=== PATIENT | male | born 1945 | race Caucasian/White ===

== ENCOUNTER 2016-09-02 13:13 | Inpatient (IN) | payer OTHER ==
[~2016-09-02] VITALS: Ht 174 cm; Wt 70.5 kg
[2016-09-02] MEDS ORDERED: SOD CHLORIDE 0.9% 500 ML IV STA (13:40)
[2016-09-02 14:04] LABS: ADD SCAN DIFF NO
[2016-09-02 14:14] LABS: BASOPHIL # 0.1 10^3/ul (0.0-0.1); BASOPHILS % 0.7 % (0.0-2.0); EOSINOPHILS # 0.1 10^3/ul (0.0-0.5); EOSINOPHILS % 1.4 % (0.0-7.0); HEMATOCRIT 43.4 % (42.0-52.0); HEMOGLOBIN 15.6 g/dl (14.0-18.0); LYMPHOCYTES # 1.5 10^3/ul (0.8-2.9); LYMPHOCYTES % 22.2 % (15.0-51.0); MEAN CORPUSCULAR HEMOGLOBIN 32.4 pg (29.0-33.0); MEAN CORPUSCULAR HGB CONC 35.9 g/dl (32.0-37.0); MEAN CORPUSCULAR VOLUME 90.2 fl (82.0-101.0); MEAN PLATELET VOLUME 11.4 fl (7.4-10.4); MONOCYTE # 0.7 10^3/ul (0.3-0.9); MONOCYTES % 9.8 % (0.0-11.0); NEUTROPHIL # 4.5 10^3/ul (1.6-7.5); NEUTROPHILS % 65.6 % (39.0-77.0); PLATELET COUNT 158 10^3/UL (140-415); RED BLOOD COUNT 4.81 10^6/ul (4.70-6.10); RED CELL DISTRIBUTION WIDTH 13.2 % (11.5-14.5); WHITE BLOOD COUNT 6.9 10^3/ul (4.8-10.8)
[2016-09-02 14:27] LABS: ANION GAP 12 (8-16); BLOOD UREA NITROGEN 20 mg/dl (7-20); CARBON DIOXIDE 27 mmol/L (21-31); CHLORIDE 102 mmol/L (97-110); CREATININE 1.12 mg/dl (0.61-1.24); GLUCOSE 183 mg/dl (70-220); POTASSIUM 4.1 mmol/L (3.5-5.1); SODIUM 137 mmol/L (135-144)
[2016-09-02 14:41] LABS: TROPONIN-I < 0.012 ng/ml (0.00-0.12)
--- NOTE | 2016-09-02 15:15 | ERA ---
ER Documentation Chief Complaint Date/Time DATE: 09/02/16 TIME: 15:11 Chief Complaint bib ra for eval of confusion episode. pt a&ox4 at this time. HPI This 70-year-old male comes emergency room for increasing memory loss since this morning approximately 6 or 7 hours ago. Few days ago he had memory loss as well in the found out that he had a stroke on MRI. 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 He has no increased weakness in any part of his body currently. He does have a mild occipital headache. No visual disturbances. No chest pain shortness of breath. His accompanies him and provides history that fills in some of the gaps in his memory and states that he is improving a little bit now but earlier had trouble remembering recent events. These are the same symptoms he had recently when he was taken to the hospital and found to have a acute stroke. ROS All systems reviewed and are negative except as per history of present illness. Medications Home Meds Reported Medications Rivaroxaban* (Xarelto*) 20 Mg Tablet, 20 MG PO WITH DINNER, TAB 09/02/16 Aspirin* (Aspirin* EC) 81 Mg Tablet.dr, 81 MG PO DAILY, TAB 09/02/16 Metformin* (Glucophage*) 500 Mg Tab, 500 MG PO WITH BREAKFAST Y for PRN, #30 TAB 09/02/16 Amiodarone Hcl* (Amiodarone Hcl*) 200 Mg Tablet, 200 MG PO DAILY, #30 TAB 09/02/16 Digoxin* (Digitek*) 125 Mcg Tablet, 0.125 MG PO DAILY, TAB 09/02/16 Allergies Allergies: Coded Allergies: Penicillins (Unverified Allergy, Unknown, 09/02/16) PMhx/Soc Medical and Surgical Hx: pt denies Surgical Hx History of Surgery: No Hx Neurological Disorder: Yes (stroke x 3) Hx Respiratory Disorders: No Hx Cardiac Disorders: Yes (atrial fibrillation) Hx Psychiatric Problems: No Hx Miscellaneous Medical Probl: Yes (diabetes, high cholesterol) Hx Alcohol Use: No Hx Substance Use: No Hx Tobacco Use: No Smoking Status: Never smoker Physical Exam Vitals Vital Signs Date Time Temp Pulse Resp B/P Pulse Ox O2 Delivery O2 Flow Rate FiO2 09/02/16 18:40 98.1 68 14 129/73 99 Room Air 09/02/16 16:24 62 12 127/75 99 Room Air 09/02/16 13:25 98.4 81 19 167/71 99 Physical Exam Const: [] No distress Head: Atraumatic Eyes: Normal Conjunctiva ENT: Normal External Ears, Nose and Mouth. Neck: Full range of motion..~ No meningismus. Resp: Clear to auscultation bilaterally Cardio: Irregularly irregular, no murmurs Abd: Soft, non tender, non distended. Normal bowel sounds Skin: No petechiae or rashes Back: No midline or flank tenderness Ext: No cyanosis, or edema, distal pulses intact all 4 extremities Neur: Awake and alert and oriented 3, no focal deficits, short-term memory is currently intact, cranial nerves II through XII intact, no cerebellar deficits on right side. Patient's left arm has 3 out of 5 strength and some muscle contracture which he says is chronic, NIH stroke scale equals 0 at this time. Result Diagram: 09/02/16 1355 09/02/16 1355 Results 24 hrs Laboratory Tests Test 09/02/16 13:55 09/02/16 14:27 09/02/16 18:08 White Blood Count 6.910^3/ul Red Blood Count 4.8110^6/ul Hemoglobin 15.6g/dl Hematocrit 43.4% Mean Corpuscular Volume 90.2fl Mean Corpuscular Hemoglobin 32.4pg Mean Corpuscular Hemoglobin Concent 35.9g/dl Red Cell Distribution Width 13.2% Platelet Count 82385^3/UL Mean Platelet Volume 11.4fl Neutrophils % 65.6% Lymphocytes % 22.2% Monocytes % 9.8% Eosinophils % 1.4% Basophils % 0.7% Nucleated Red Blood Cells % 0.0/100WBC Neutrophils # 4.510^3/ul Lymphocytes # 1.510^3/ul Monocytes # 0.710^3/ul Eosinophils # 0.110^3/ul Basophils # 0.110^3/ul Nucleated Red Blood Cells # 0.010^3/ul Sodium Level 137mmol/L Potassium Level 4.1mmol/L Chloride Level 102mmol/L Carbon Dioxide Level 27mmol/L Anion Gap 12 Blood Urea Nitrogen 20mg/dl Creatinine 1.12mg/dl Glucose Level 183mg/dl Calcium Level 9.0mg/dl Troponin I < 0.012ng/ml Bedside Glucose 188mg/dL 181mg/dL Current Medications Medications (Trade) Dose Ordered Sig/Nilam Route PRN Reason Start Time Stop Time Status Last Admin Dose Admin Sodium Chloride (NS) 500 ml @ 500 mls/hr Q1H STAT IV 09/02/16 13:40 09/02/16 14:39 DC 09/02/16 14:34 Ondansetron HCl (Zofran Inj) 4 mg ER BRIDGE PRN IV NAUSEA AND/OR VOMITING 09/02/16 16:30 09/03/16 16:29 Acetaminophen (Tylenol Tab) 650 mg ER BRIDGE PRN PO MILD PAIN/FEVER 09/02/16 16:30 09/03/16 16:29 Amiodarone HCl (Cordarone) 200 mg DAILY PO 09/03/16 09:00 Aspirin (Halfprin) 81 mg DAILY PO 09/03/16 09:00 Digoxin (Digoxin) 0.125 mg DAILY PO 09/03/16 09:00 Rivaroxaban (Xarelto) 20 mg WITH DINNER PO 09/02/16 18:00 09/02/16 17:31 Diagnostic Test (Pha) (Accu-Chek) 1 ea 02 XX 09/03/16 02:00 Miscellaneous Information (* Miscellaneous Pharmacy Order) HYPOGLYCEMIA PROTOCOL w... ONCE ONCE XX 09/02/16 16:30 09/02/16 16:51 DC 09/02/16 17:11 Insulin Aspart (Novolog Insulin Pen) NOVOLOG *MILD* ALGORITHM WITH MEALS BEDTIME SC 09/02/16 18:00 Miscellaneous Information (* Miscellaneous Pharmacy Order) Discontinue all previ... ONCE ONCE XX 09/02/16 16:30 09/02/16 16:51 DC 09/02/16 17:11 Miscellaneous Information 1 ea NOTE XX 09/02/16 17:00 Glucose (Glutose) 15 gm Q15M PRN PO DECREASED GLUCOSE 09/02/16 17:00 Glucose (Glutose) 22.5 gm Q15M PRN PO DECREASED GLUCOSE 09/02/16 17:00 Dextrose (D50w Syringe) 25 ml Q15M PRN IV DECREASED GLUCOSE 09/02/16 17:00 Dextrose (D50w Syringe) 50 ml Q15M PRN IV DECREASED GLUCOSE 09/02/16 17:00 Glucagon (Glucagen) 1 mg Q15M PRN IM DECREASED GLUCOSE 09/02/16 17:00 Glucose (Glutose) 15 gm Q15M PRN BUCCAL DECREASED GLUCOSE 09/02/16 17:00 Procedures/MDM 70-year-old male with symptoms concerning for acute stroke and that he had similar symptoms with his last stroke. Resolving symptoms suggest possible TIA. Initial head CT shows no hemorrhage. Patient is on Xarelto so this was a concern for possible hemorrhage. Patient had no neurologic deficits except for his residual chronic weakness from prior hemorrhagic stroke. EKG shows no signs of ischemia. Spoke with Dr. Busch who will be admitting the patient to telemetry for further monitoring and workup of his stroke EKG interpretation: Atrial fibrillation rate of 63, indeterminate axis, no ST or T-wave changes concerning for acute ischemia. 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
--- NOTE | 2016-09-02 15:27 | RADRPT ---
PROCEDURE: XR Chest. CLINICAL INDICATION: Chest pain, syncope TECHNIQUE: AP view of the chest was performed. COMPARISON: None FINDINGS: Borderline cardiomegaly is present. The lungs are clear. No signs of pleural fluid or pneumothorax a re seen. The osseous structures and soft tissues are unremarkable. IMPRESSION: No evidence for active cardiopulmonary disease. Borderline cardiomegaly. No acute infiltrate or fin dings of fluid overload. RPTAT: QQ .Arabella Neal MD, MD Date Time Electronically viewed and signed by .Arabella Neal MD, on 09/02/2016 15:26 .F/
[2016-09-02] MEDS ORDERED: DIGO125T PO (15:49)
[2016-09-02] MEDS ORDERED: AMIO200T2 PO (15:50)
[2016-09-02] MEDS ORDERED: METF500T4 PO (15:51)
[2016-09-02] MEDS ORDERED: ASPI-664 PO (15:51)
[2016-09-02] MEDS ORDERED: RIVA20TA PO (15:52)
--- NOTE | 2016-09-02 16:10 | RADRPT ---
PROCEDURE: Noncontrast CT Head. CLINICAL INDICATION: Memory loss. Stroke. TECHNIQUE: Noncontrast CT of the head was obtained. The administered radiation dose was CTDI vol = 44.68 mGy, DLP = 720.23 mGy-cm. One or more of the following dose reduction techniques were used: Au tomated exposure control, Adjustment of the mA and/or kV according to patient size, or Use of iterat vashti reconstruction technique. COMPARISON: Noncontrast CT of the head from June 29, 2015. FINDINGS: There is mild generalized cerebral volume loss. There is mild to moderate right hippocampal volume l oss. The left hippocampus is within normal limits. There is mild to moderate periventricular hypoa ttenuation suggesting chronic microvascular ischemic changes. There are mild vascular calcificatio ns within the intracranial carotid arteries. There is a chronic right frontal opercular infarction involving the right insula and right basal kristina glia with cystic encephalomalacia and adjacent subcortical gliosis. Gliosis extends into the right s uperior temporal lobe. There is mild ex vacuo dilatation of the right lateral ventricle. The right c erebral peduncle small in size most compatible with Wallerian degeneration. There is no loss of malave-white differentiation to suggest acute territorial infarction. There is no acute intracranial hemorrhage or extra-axial fluid collection. No midline shift is identified. The orbits are within normal limits. The paranasal sinuses are well aerated. No destructive osseous lesion is identified. IMPRESSION: No significant change. 1. No acute intracranial hemorrhage. 2. Mild generalized cerebral volume loss. 3. Mild to moderate chronic microvascular ischemic changes. 4. 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 5. Mild to moderate right hippocampal volume loss. Further findings as detailed above. RPTAT: PP .Jaison Do MD, Date Time Electronically viewed and signed by .Jaison Do MD, MD on 09/02/2016 16:09 .F/
[2016-09-02] MEDS ORDERED: ACETAMINOPHEN 325 MG TAB PO PRN (16:30)
[2016-09-02] MEDS ORDERED: ONDANSETRON 4 MG INJ IV PRN (16:30)
[2016-09-02] MEDS ORDERED: GLUCOSE GEL 15 GRAM TUBE BUCCAL PRN (17:00)
[2016-09-02] MEDS ORDERED: GLUCOSE GEL 15 GRAM TUBE PO PRN ×2 (17:00)
[2016-09-02] MEDS ORDERED: DEXTROSE 50% 50 ML SYRINGE IV PRN ×2 (17:00)
[2016-09-02] MEDS ORDERED: GLUCAGON 1 MG INJ IM PRN (17:00)
--- NOTE | 2016-09-02 17:13 | RADRPT ---
PROCEDURE: US carotid arteries. CLINICAL INDICATION: Dizziness. Cerebrovascular accident. TECHNIQUE: Multiple sonographic images of the carotid arteries and vertebral arteries were obtaine d utilizing malave scale, duplex, and color-flow imaging. The images were reviewed on a PACS workstati on. COMPARISON: No prior studies are available for comparison. FINDINGS: Evaluation of the right carotid bifurcation region reveals mild atherosclerotic disease. Evaluation of the left carotid bifurcation region reveals mild atherosclerotic disease. There is antegrade flow within the vertebral arteries bilaterally. RIGHT CAROTID MEASUREMENTS: Common Carotid [id number] (cm/sec) Internal Carotid Artery 49 (cm/sec) External Carotid Artery 64 (cm/sec) Vertebral Artery 35 (cm/sec) Internal Carotid/Common Carotid1.0 LEFT CAROTID MEASUREMENTS: Common Carotid [id number] (cm/sec) Internal Carotid Artery 69 (cm/sec) External Carotid Artery 82 (cm/sec) Vertebral Artery 33 (cm/sec) Internal Carotid/Common Carotid1.0 Validated velocity measurements with angiographic measurements. Velocity criteria are extrapolated f rom diameter data as defined by the Society of Radiologists in Ultrasound Consensus Conference. Radi ology 2003; 229;340-346. This study does indirectly reference the measurement of the distal ICA alexandra meter as the denominator for stenosis measurement. IMPRESSION: 1. Less than 50% stenosis bilaterally in the internal carotid arteries. 2. Normal antegrade flow in the vertebral arteries bilaterally. RPTAT: QQ SRU Consensus Conference Criteria for the Diagnosis of Carotid Artery Stenosis* Degree of Stenosis, % ICA PSV, cm/sec Plaque Estimate, % ICA/CCA PSV Ratio Normal <125 None <2.0 <50 <125 <50 <2.0 50 69 125-230 >50 2.0-4.0 >70 but less than near occlusion >230 >50 <4.0 Near occlusion High, low, or undetectable Visible Variable Total occlusion Undetectable Visible, no detectable lumen Not applicable *Cartoid artery stenosis: malave-scale and Doppler US diagnosis. Society of Radiologists in Ultrasound Consensus Conference. Radiology 2003; 229: 340-346 .Juan Chio MD, Date Time Electronically viewed and signed by .Juan Choi MD, on 09/02/2016 17:13 .R/
[2016-09-02] MEDS: INSULIN ASPART [NOVOLOG] 3 ML PEN SC SCH ×2 (18:00→21:00)
[2016-09-02] MEDS ORDERED: RIVAROXABAN 20 MG TABLET PO SCH (18:00)
[2016-09-02 18:40] VITALS: TEMP 98.1
[2016-09-02] MEDS ORDERED: ASPIRIN 81 MG TAB PO ONE (20:30)
--- NOTE | 2016-09-02 20:45 | HP ---
Date/Time of Note Date/Time of Note DATE: 09/02/16 TIME: 16:28 Assessment/Plan VTE Prophylaxis VTE Prophylaxis Intervention: SCD's Assessment/Plan Assessment/Plan 70 yo M with 1. Possible acute on chronic CVA 2. A fib : rate controlled 3. Diabetes type 2 4. Dyslipidemia PLAN: Admit tele / MRI / carotid dopplers / 2D echo PT / OT eval / Neurology consult Screening labs for dyslipidemia, DM, Thyroid disease Empiric ASA / Statin therapy Further evaluation and treatment will be based on clinical course and findings Neurology Consult, Speech and Physical therapy consults. Supportive care Plan of care has been discussed with patient, questions answered and patient has verbalized understanding. Please review chart and notes for further information if needed. PROPHYLAXIS: SCDs / Pepcid HPI/ROS Admit Date/Time Admit Date/Time 09/02/16 Hx of Present Illness 70 yo M poor historian who presents with concerns for memory loss for the last few days, with a history of CVA in the past, admitted for stroke workup. Patient has a residual Left-sided hemiplegia from previous strokes. As far as I know there has been no fever, no chest pain, shortness of breath. Patient does not report abdominal pain, blood in his stool, dysuria or hematuria. He has had both hemorrhagic and ischemic strokes in the past. He also has a history of atrial fibrillation but is currently rate controlled. ROS 12 point review if systems was done and pertinent findings are as noted. PMH/Family/Social Past Medical History * Afib * Prev CVA * Diabetes type 2 * Dyslipidemia Medical History: diabetes, high cholesterol Social History Alcohol Use: none Smoking Status: Never smoker Exam/Review of Systems Vital Signs Vitals VS - Last 72 Hours, by Label Date Time Temp Pulse Resp B/P Pulse Ox O2 Delivery O2 Flow Rate FiO2 09/02/16 16:24 62 12 127/75 99 Room Air 09/02/16 13:25 98.4 81 19 167/71 99 Vital Signs Date Time Temp Pulse Resp B/P Pulse Ox O2 Delivery O2 Flow Rate FiO2 09/02/16 16:24 62 12 127/75 99 Room Air 09/02/16 13:25 98.4 Exam Exam GENERAL: Patient is alert, in no distress HEENT: Oropharynx is clear. There is no carotid bruit, no masses. Patient's pupils are equal, round and reactive to light bilaterally. NECK: Supple. LUNGS: Clear to auscultation bilaterally with good air entry. No Wheezes or crackles. HEART: S1, S2. No murmur, gallops or rubs. Irregularly irregular ABDOMEN: Soft, nontender. Normoactive bowel sounds. There are no stigmata of chronic liver disease. BACK: no costovertebral angle tenderness. GENITOURINARY: Deferred. EXTREMITIES: No edema. There is no cyanosis, clubbing. There are 2+ pulses bilaterally distally. NEUROLOGIC: Left-sided hemiparesis SKIN: Otherwise, unremarkable. Labs Result Diagram: 09/02/16 1355 09/02/16 1355 Procedures Procedures Laboratory Tests Test 09/02/16 13:55 09/02/16 14:27 White Blood Count 6.910^3/ul Red Blood Count 4.8110^6/ul Hemoglobin 15.6g/dl Hematocrit 43.4% Mean Corpuscular Volume 90.2fl Mean Corpuscular Hemoglobin 32.4pg Mean Corpuscular Hemoglobin Concent 35.9g/dl Red Cell Distribution Width 13.2% Platelet Count 87510^3/UL Mean Platelet Volume 11.4fl Neutrophils % 65.6% Lymphocytes % 22.2% Monocytes % 9.8% Eosinophils % 1.4% Basophils % 0.7% Nucleated Red Blood Cells % 0.0/100WBC Neutrophils # 4.510^3/ul Lymphocytes # 1.510^3/ul Monocytes # 0.710^3/ul Eosinophils # 0.110^3/ul Basophils # 0.110^3/ul Nucleated Red Blood Cells # 0.010^3/ul Sodium Level 137mmol/L Potassium Level 4.1mmol/L Chloride Level 102mmol/L Carbon Dioxide Level 27mmol/L Anion Gap 12 Blood Urea Nitrogen 20mg/dl Creatinine 1.12mg/dl Glucose Level 183mg/dl Calcium Level 9.0mg/dl Troponin I < 0.012ng/ml Bedside Glucose 188mg/dL Current Medications Medications (Trade) Dose Ordered Sig/Nilam Route PRN Reason Start Time Stop Time Status Last Admin Dose Admin Sodium Chloride (NS) 500 ml @ 500 mls/hr Q1H STAT IV 09/02/16 13:40 09/02/16 14:39 DC 09/02/16 14:34 500 MLS/HR Ondansetron HCl (Zofran Inj) 4 mg ER BRIDGE PRN IV NAUSEA AND/OR VOMITING 09/02/16 16:30 09/03/16 16:29 Acetaminophen (Tylenol Tab) 650 mg ER BRIDGE PRN PO MILD PAIN/FEVER 09/02/16 16:30 09/03/16 16:29 PROCEDURE: Noncontrast CT Head. CLINICAL INDICATION: Memory loss. Stroke. TECHNIQUE: Noncontrast CT of the head was obtained. The administered radiation dose was CTDI vol = 44.68 mGy, DLP = 720.23 mGy-cm. One or more of the following dose reduction techniques were used: Automated exposure control, Adjustment of the mA and/or kV according to patient size, or Use of iterative reconstruction technique. COMPARISON: Noncontrast CT of the head from June 29, 2015. FINDINGS: There is mild generalized cerebral volume loss. There is mild to moderate right hippocampal volume loss. The left hippocampus is within normal limits. There is mild to moderate periventricular hypoattenuation suggesting chronic microvascular ischemic changes. There are mild vascular calcifications within the intracranial carotid arteries. There is a chronic right frontal opercular infarction involving the right insula and right basal ganglia with cystic encephalomalacia and adjacent subcortical gliosis. Gliosis extends into the right superior temporal lobe. There is mild ex vacuo dilatation of the right lateral ventricle. The right cerebral peduncle small in size most compatible with Wallerian degeneration. There is no loss of malave-white differentiation to suggest acute territorial infarction. There is no acute intracranial hemorrhage or extra-axial fluid collection. No midline shift is identified. The orbits are within normal limits. The paranasal sinuses are well aerated. No destructive osseous lesion is identified. IMPRESSION: No significant change. 1. No acute intracranial hemorrhage. 2. Mild generalized cerebral volume loss. 3. Mild to moderate chronic microvascular ischemic changes. 4. 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 5. Mild to moderate right hippocampal volume loss. Further findings as detailed above. RPTAT: PP .Jaison Do MD, MD Date Time Electronically viewed and signed by .Jaison Do MD, MD on 09/02/2016 16:09 .F/ CC: JOANNEAVELINA PROCEDURE: XR Chest. CLINICAL INDICATION: Chest pain, syncope TECHNIQUE: AP view of the chest was performed. COMPARISON: None FINDINGS: Borderline cardiomegaly is present. The lungs are clear. No signs of pleural fluid or pneumothorax are seen. The osseous structures and soft tissues are unremarkable. IMPRESSION: No evidence for active cardiopulmonary disease. Borderline cardiomegaly. No acute infiltrate or findings of fluid overload. RPTAT: QQ .Arabella Neal MD, MD Date Time Electronically viewed and signed by .Arabella Neal MD, MD on 09/02/2016 15:26 .F/ I reviewed EKG Rate: 63 Rhythm: afib Note: No ST elevation or depressions noted concerning for acute ischemic event. KEVIN MARTINEZ. Sep 02, 2016 16:40
--- NOTE | 2016-09-02 22:58 | RADRPT ---
PROCEDURE: MRI Brain without contrast. CLINICAL INDICATION: Stroke TECHNIQUE: An MRI of the brain was performed on a high resolution hi-definition MRI scanner utiliz ing the following sequences: Sagittal and axial T1 weighted, axial T2 weighted, coronal GRE, axial diffusion weighted with ADC mapping, coronal GRE, and axial FLAIR. COMPARISON: None FINDINGS: The scalp and calvarium are normal. The paranasal sinuses are normal. The bilateral orbits are norm al. The bilateral mastoid air cells and middle ear cavities are clear. No extra-axial fluid collections are present. The ventricles and sulci are age appropriate. Moderat e diffuse volume loss is present. No evidence of intracranial hemorrhage, mass effect or midline [place] ft is present. Hyperintensity on FLAIR and T2-weighted sequences is noted and a wedge shaped configu ration involving the right frontal lobe, right periventricular white matter, right basal ganglia, in sula and the particular compatible with a chronic right middle cerebral artery infarct. Associated volume loss of the right cerebral peduncle and right dima hugo is present compatible with Wallerian degeneration. Associated right greater than left FLAIR and T2 hyperintensity in the subcortical white matter, cent rum semiovale, and periventricular white matter compatible with moderate chronic microvascular ische ni disease. associated hyperintensity is also noted in the right periventricular temporal lobe and the para hippocampal gyrus with associated volume loss. Restricted and restricted diffusion is note d in the right periventricular white matter and the right occipital lobe compatible with evolution o f an acute to subacute infarct. Hypointensity is present on GRE sequences in the right periventricu lar white matter, basal ganglia and insula compatible with previous hemorrhagic right middle cerebra l artery infarct. No significant flow void is noted in the sylvian branches of the right middle cer ebral artery. Normal flow voids are visible in the remaining proximal intracranial arteries and dura l sinuses, indicating patency. IMPRESSION: 1. Acute to subacute right occipital lobe and right periventricular deep white matter non hemorrhag ic infarcts. 2. Chronic , previously hemorrhagic, right middle cerebral artery infarct and associated wallerian degeneration. 3. Right greater than left moderate chronic microvascular ischemic disease as noted above and diffu se volume loss. 4. No significant flow void in the sylvian right middle cerebral artery branches compatible with ch ronic right middle cerebral artery infarct A call report was made to Dr. Anaya at 09/02/2016 10:50:23 PM following the completion of the exami nation by the undersigned. RPTAT: HDC .Jennifer Hawthorne MD, MD Date Time Electronically viewed and signed by .Jennifer Hawthorne MD, MD on 09/02/2016 22:57 .C/
[2016-09-02 23:17] VITALS: BP 137/84; PULSE 60; RESP 18
[2016-09-03] VITALS (10 sets, daily range): BP systolic 132–152; BP diastolic 66–79; PULSE 50–70; RESP 18–19; Ht 174 cm; Wt 70.5 kg
[2016-09-03] MEDS: INSULIN ASPART [NOVOLOG] 3 ML PEN SC SCH ×3 (00:37→11:50)
[2016-09-03] MEDS ORDERED: ACCU-CHEK XX SCH (02:00)
[2016-09-03] MEDS ORDERED: AMIODARONE 200 MG TAB PO SCH (09:00)
[2016-09-03] MEDS ORDERED: ASPIRIN (EC) 81 MG TAB PO SCH (09:00)
[2016-09-03] MEDS ORDERED: DIGOXIN 0.125 MG TAB PO SCH (09:00)
[2016-09-03 09:52] LABS: ADD SCAN DIFF NO
[2016-09-03 09:54] LABS: BASOPHIL # 0.1 10^3/ul (0.0-0.1); BASOPHILS % 0.8 % (0.0-2.0); EOSINOPHILS # 0.1 10^3/ul (0.0-0.5); EOSINOPHILS % 1.7 % (0.0-7.0); HEMATOCRIT 44.4 % (42.0-52.0); LYMPHOCYTES # 1.5 10^3/ul (0.8-2.9); LYMPHOCYTES % 22.3 % (15.0-51.0); MEAN CORPUSCULAR HEMOGLOBIN 32.8 pg (29.0-33.0); MEAN PLATELET VOLUME 11.6 fl (7.4-10.4); MONOCYTE # 0.8 10^3/ul (0.3-0.9); MONOCYTES % 11.6 % (0.0-11.0); NEUTROPHIL # 4.1 10^3/ul (1.6-7.5); NEUTROPHILS % 63.1 % (39.0-77.0); PLATELET COUNT 169 10^3/UL (140-415); RED BLOOD COUNT 4.88 10^6/ul (4.70-6.10); RED CELL DISTRIBUTION WIDTH 13.4 % (11.5-14.5); WHITE BLOOD COUNT 6.6 10^3/ul (4.8-10.8)
[2016-09-03 10:14] LABS: INR 1.74; PROTIME 20.5 Sec (12.2-14.2); PT RATIO 1.6
[2016-09-03 10:15] LABS: PARTIAL THROMBOPLASTIN TIME 38.3 Sec (25.0-35.0)
[2016-09-03 10:54] LABS: ALBUMIN 4.1 g/dl (3.3-4.9); BILIRUBIN,INDIRECT 0.4 mg/dl (0-1.1); BILIRUBIN,TOTAL 0.4 mg/dl (0.2-1.3); CALCIUM 9.1 mg/dl (8.4-10.2); CHOL/HDL RATIO 8.5 RATIO; CREATININE 1.02 mg/dl (0.61-1.24); MAGNESIUM 1.9 mg/dl (1.7-2.5); POTASSIUM 4.3 mmol/L (3.5-5.1); TOTAL PROTEIN 6.2 g/dl (6.1-8.1)
[2016-09-03] MEDS ORDERED: ATORVASTATIN 80 MG TAB PO SCH (11:30)
[2016-09-03 13:05] LABS: THYROID STIMULATING HORMONE 1.43 MIU/L (0.465-4.680)
[2016-09-03] MEDS ORDERED: METF500T4 PO (14:28)
[2016-09-03] MEDS ORDERED: ZOC10 PO (15:18)
--- NOTE | 2016-09-03 15:21 | PDOCDIS ---
Discharge Instructions DIAGNOSIS Discharge Diagnosis Acute recurrent Stroke CONDITION Patient Condition: Stable HOME CARE INSTRUCTIONS: Special Diet: CARB CONTROLLED ACTIVITY: Activity Restrictions: Slowly Increase Activity Rest between Activity REFERRALS Other Referrals Name, Degree : Berenice Perry MD Specialty :Neurology Office Address : [facility] [address], [address] [place] [address] Office Office OTHER ORDERS: Other Orders: You will benefit from neurosurgical review with a cerebrovascular specialist. It is my understanding that these appointment has already been set up, Please follow up at scheduled appointment. Please make sure you follow-up with a neurologist as well outpatient. It is very important Followup with your primary doctor as well within the next 1-2 weeks. If you don't have one please let someone know, we can give you resources that may help you pick one. You may call Dr Jer Monte's office. he's accepting new patients Name, Degree: Jer Monte MD Specialty: Internal Medicine Comments: Office Address: [address] [place] [address] [address] [place] [address] Office Office You may also call your insurance company to assign one to you. Review your medication list with your nurse before leaving and if you need new prescriptions please let your nurse know. I may have made changes to your home medications or given you new prescriptions , please let your primary doctor know as well. Stay compliant with your medications and report any side effects to your PCP or pharmacist. Return to the ER if you have any concerns and cannot reach your doctors or call your insurance company, they usually have a nurse that can help you. KEVIN MARTINEZ Sep 03, 2016 15:21
--- NOTE | 2016-09-03 17:54 | DS ---
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 Patient Condition: Stable Consults Neurosurgical as well as neurology consults were obtained, however patient opted not to see the consultants prior to discharge. . Procedures See hospital course . Hospital Course 71-year-old male who has a past medical history of one hemorrhagic stroke back in February 2014 and 2 ischemic strokes earlier this year with residual significant left-sided hemiparesis. His noticed that he was having abnormal memory loss about 6 days ago, as evidenced by him asking the same questions over and over again, her needing to remind him of significant events which he typically will not have forgotten. She was concerned but she wanted to wait and see how it turned out. She also did not recognize it because it was not classic signs of an acute stroke. However symptoms seemed to improve but not significantly. She decided to bring him to be evaluated yesterday. At this time his evaluation is now consistent with another right occipital stroke that was confirmed on MRI. MRI also showed periventricular deep white matter infarcts, It did show a previously hemorrhagic right middle cerebral artery infarct with associated wallerian degeneration. The patient when he had his prior stroke in March 2016 had undergone an MRA of the brain. This was found to be diffusely abnormal, showin. Right MCA M2 segments occlusion 2. Right proximal anterior cerebral arteries severe focal stenosis 3. Bilateral posterior cerebral atrophy proximal severe stenosis and distal occlusions 4. Incidental/nonacute findings. After reviewing all images; I spoke with patient and his in detail. 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 I explained to the patient that because of his symptomatology and all findings, he will need to be seen by a neurologist, as well as a neurosurgeon. His did endorse to me that they had outpatient appointments set up with both neurology and neurosurgery, however they have not been able to keep this because patient got admitted to the hospital. I did let them know that I had obtained neurology consultation, I was going to obtain neurosurgical consultation as well. The patient and his however had a clear understanding of his disease process, and instead told me they were exploring nonsurgical options to treat his clinical condition. They mentioned something called EPS. I also spoke with the neurosurgeon after speaking with them, and Dr. Reynolds strongly recommended transfer to tertiary [facility] for review by a neurosurgeon who specializes in strokes for possible bypass surgery versus stent placement in his cerebral artery. However when I presented his options with the patient and his , the patient vehemently refused surgery, and his assured me that he was fully aware and cognizant of the possibility of if he did not pursue surgery, as well as recurrent strokes and he was willing to take this risk rather than go through surgery. They politely declined the transfer. During this conversation, they also asked me if the neurologist would add much to the condition or management, I expressed to them that I I did not know exactly what the neurologist would say, and I did strongly recommend that they see a neurologist before discharge however they assured me that they did have an upcoming appointment and they will be sure to keep that appointment. They requested to be discharged right away before the neurologist came by. It is my opinion that the patient and his are well educated and do understand the consequences of this decision, they have assured me they will keep their outpatient neurology as well as neurosurgical follow-ups and as such I will be discharging them now per their request. The patient also has had a bad myopathy reaction to Lipitor, and as such was refusing Lipitor therapy; but I was able to convince him to try low-dose simvastatin. Further measures will be. He is neurologist on neurosurgical recommendations. . Home Meds Active Scripts Simvastatin (Simvastatin) 10 Mg Tablet, 10 MG PO QHS, #30 TAB 1 Refill Prov:CHILO MARTINEZVic Galan. 09/03/16 Metformin* (Glucophage*) 500 Mg Tab, 500 MG PO WITH BREAKFAST, #30 TAB 1 Refill Prov:AMMY MARTINEZCATRACHITA Galan. 09/03/16 Reported Medications Rivaroxaban* (Xarelto*) 20 Mg Tablet, 20 MG PO WITH DINNER, TAB 09/02/16 Aspirin* (Aspirin* EC) 81 Mg Tablet., 81 MG PO DAILY, TAB 09/02/16 Amiodarone Hcl* (Amiodarone Hcl*) 200 Mg Tablet, 200 MG PO DAILY, #30 TAB 09/02/16 Digoxin* (Digitek*) 125 Mcg Tablet, 0.125 MG PO DAILY, TAB 09/02/16 Follow-up Plan See hospital course . Primary Care Provider Not On Staff Doctor Time spent on discharge: > 30 minutes Pending Labs Laboratory Tests Test 09/02/16 18:08 09/03/16 00:35 09/03/16 08:07 09/03/16 09:25 Bedside Glucose 181mg/dL (70-220) 126mg/dL (70-220) 166mg/dL (70-220) White Blood Count 6.610^3/ul (4.8-10.8) Red Blood Count 4.8810^6/ul (4.70-6.10) Hemoglobin 16.0g/dl (14.0-18.0) Hematocrit 44.4% (42.0-52.0) Mean Corpuscular Volume 91.0fl (82.0-101.0) Mean Corpuscular Hemoglobin 32.8pg (29.0-33.0) Mean Corpuscular Hemoglobin Concent 36.0g/dl (32.0-37.0) Red Cell Distribution Width 13.4% (11.5-14.5) Platelet Count 25335^3/UL (140-415) Mean Platelet Volume 11.6fl (7.4-10.4) Neutrophils % 63.1% (39.0-77.0) Lymphocytes % 22.3% (15.0-51.0) Monocytes % 11.6% (0.0-11.0) Eosinophils % 1.7% (0.0-7.0) Basophils % 0.8% (0.0-2.0) Nucleated Red Blood Cells % 0.0/100WBC (0.0-0.0) Neutrophils # 4.110^3/ul (1.6-7.5) Lymphocytes # 1.510^3/ul (0.8-2.9) Monocytes # 0.810^3/ul (0.3-0.9) Eosinophils # 0.110^3/ul (0.0-0.5) Basophils # 0.110^3/ul (0.0-0.1) Nucleated Red Blood Cells # 0.010^3/ul (0.0-0.0) Prothrombin Time 20.5Sec (12.2-14.2) Prothrombin Time Ratio 1.6 INR International Normalized Ratio 1.74 Activated Partial Thromboplast Time 38.3Sec (25.0-35.0) Sodium Level 140mmol/L (135-144) Potassium Level 4.3mmol/L (3.5-5.1) Chloride Level 108mmol/L (97-110) Carbon Dioxide Level 23mmol/L (21-31) Anion Gap 13 (8-16) Blood Urea Nitrogen 19mg/dl (7-20) Creatinine 1.02mg/dl (0.61-1.24) Glucose Level 201mg/dl (70-220) Hemoglobin A1c 7.0% (0-5.9) Calcium Level 9.1mg/dl (8.4-10.2) Phosphorus Level 3.0mg/dl (2.5-4.9) Magnesium Level 1.9mg/dl (1.7-2.5) Total Bilirubin 0.4mg/dl (0.2-1.3) Direct Bilirubin 0.00mg/dl (0.00-0.20) Indirect Bilirubin 0.4mg/dl (0-1.1) Aspartate Amino Transf (AST/SGOT) 29IU/L (15-46) Alanine Aminotransferase (ALT/SGPT) 56IU/L (13-69) Alkaline Phosphatase 94IU/L (42-121) Total Protein 6.2g/dl (6.1-8.1) Albumin 4.1g/dl (3.3-4.9) Triglycerides Level 607mg/dl (0-149) Cholesterol Level 196mg/dl (100-200) LDL Cholesterol, Calculated 52mg/dl HDL Cholesterol 23mg/dl (31-75) Cholesterol/HDL Ratio 8.5RATIO Thyroid Stimulating Hormone (TSH) 1.430MIU/L (0.465-4.680) Digoxin Level < 0.4ng/ml (1.0-2.0) Test 09/03/16 11:32 Bedside Glucose 228mg/dL (70-220) KEVIN MARTINEZ Sep 03, 2016 17:54
--- NOTE | 2016-09-03 20:15 | RADRPT ---
Echocardiogram Report Patient Name: CHINO BARTLETT Gender: Male Date: 1945 Study Date: 03-Sep-2016 Paper Counter: Whit TeixeiraEUGENE Location: [facility] Ref. Physician: KEVIN MARTINEZ Quality: Adequate Procedures: Transthoracic echocardiogram with complete 2D, M-Mode, and doppler examination. Indications: Atrial Fibrillation. Cerebrovascular Accident. 2D/M Mode Doppler Measurement Value Normal Ranges Measurement Value Normal Ranges LVIDd 2D 4.1 3.5 - 5.6 cm AV Peak Epifanio 1.6 m/sec LVIDs 2D 2.7 2.1 - 4.1 cm AV Peak PG 11.0 mmHg FS 2D 32.6 % LVOT Peak Epifanio 1.2 m/sec LVPWd 2D 1.4 0.6 - 1.1 cm LVOT Peak PG 5.0 mmHg IVSd 2D 1.6 0.6 - 1.1 cm MV E Peak Epifanio 1.0 m/sec IVS/LVPW 2D 1.1 MV Decel Time 155 msec AoR Diam 2D 3.0 2.0 - 3.7 cm TR Peak Epifanio 2.0 m/sec LA/Ao 2D 1 0 - 1 TR Peak PG 15.0 mmHg EDV 2D 66.4 cm3 RVSP 23.0 mmHg ESV 2D 20.3 cm3 LA Dimen 2D 3.7 2.3 - 4.0 cm Findings Left Ventricle: Lower limits of normal systolic function. Normal left ventricular cavity size. Moderate concentric left ventricular hypertrophy. Ejection fraction is visually estimated at 5055 %. Tissue Doppler/Mitral Doppler indices are consistent with restrictive physiology with markedly elevated left atrial pressure (Stage IIIIV diastolic dysfunction). Right Ventricle: Normal right ventricular size. Normal right ventricular systolic function. Left Atrium: The left atrium is normal in size. Right Atrium: The right atrium is normal in size. Mitral Valve: Mitral valve leaflets appear mildly thickened. Mild mitral annular calcification. Trace mitral regurgitation. Aortic Valve: No significant aortic stenosis or insufficiency. Aortic cusps appear mildly calcified. Tricuspid Valve: Normal appearance of the tricuspid valve. Estimated peak PA systolic pressure 23 mmHg. There is trace tricuspid regurgitation. Pulmonic Valve: Pulmonic valve not well visualized. There is trace pulmonic regurgitation. Pericardium: Normal pericardium with no significant pericardial effusion. Aorta: Normal aortic root. IVC: Dilated IVC with respiratory collapse consistent with elevated right atrial pressure. Conclusions 1.Lower limits of normal systolic function. Normal left ventricular cavity size. Moderate concentric left ventricular hypertrophy. Ejection fraction is visually estimated at 50-55 %. Tissue Doppler/Mitral Doppler indices are consistent with restrictive physiology with markedly elevated left atrial pressure (Stage III-IV diastolic dysfunction). 2.Mitral valve leaflets appear mildly thickened. Mild mitral annular calcification. Trace mitral regurgitation. 3.Normal appearance of the tricuspid valve. Estimated peak PA systolic pressure 23 mmHg. There is trace tricuspid regurgitation. 4.Pulmonic valve not well visualized. There is trace pulmonic regurgitation. Electronically Signed By: Kenton Swanson 03-Sep-2016 20:14:10 -0700 Patient Name: CHINO BARTLETT Study Date: 03-Sep-[id number]
== END 2016-09-03 16:42 | disposition home health service (06) | DRG 65 ==
LOC: E/R 13:13 → MS4 16:07 → TEL 23:30
PROVIDERS: ADMIT Internal Medicine; ATTEND Internal Medicine
DX: I63.521 Cerebral infarction due to unspecified occlusion or stenosis of right anterior cerebral artery (principal); G81.91 Hemiplegia, unspecified affecting right dominant side; I69.354 Hemiplegia and hemiparesis following cerebral infarction affecting left non-dominant side; I48.2 Chronic atrial fibrillation; I63.533 Cerebral infarction due to unspecified occlusion or stenosis of bilateral posterior cerebral arteries; I10 Essential (primary) hypertension; E78.5 Hyperlipidemia, unspecified; E11.9 Type 2 diabetes mellitus without complications; Z79.4 Long term (current) use of insulin
CPT/HCPCS: 70450; 70551; 71010; 80048; 80061; 80076; 80162; 82962; 83036; 83735; 84100; 84443; 84484; 85025; 85610; 85730; 93005; 93306; 93880; 97162; J1815; J7040